=== PATIENT | female | born 2000 | race Hispanic/Latino ===

== ENCOUNTER 2022-08-30 16:05 | Emergency (ER) | payer OTHER ==
[~2022-08-30] VITALS: Ht 154.9 cm; Wt 73.9 kg
[2022-08-30 16:15] VITALS: O2SAT 100
[2022-08-30] MEDS ORDERED: LIDOCAINE VISC 2% SOLN 15 ML UDC ONE (16:20)
[2022-08-30] MEDS ORDERED: LIDOCAINE VISC 2% SOLN 15 ML UDC PO ONE (16:30)
== END 2022-08-30 16:40 | disposition home or self-care (01) ==
LOC: ER 16:22
DX: K12.0 Recurrent oral aphthae (principal)
CPT/HCPCS: 99283